=== PATIENT | male | born 1980 | race Caucasian/White ===

== ENCOUNTER 2017-11-18 06:09 | Emergency (ER) | payer OTHER, SELFPAY ==
[2017-11-18] MEDS ORDERED: DEXAMETHASONE 10 MG/ML VIAL ONE (06:50)
[2017-11-18] MEDS ORDERED: KETOROLAC 30 MG/ML INJ ONE (06:50)
--- NOTE | 2017-11-18 07:06 | ER ---
Nurse's Notes [facility] Name: Grzegorz Love Age: 37 yrs Sex: Male : 1980 Arrival Date: 11/18/2017 Time: 06:10 Bed X-Ray Private MD: Ash Mayer E Diagnosis: Pain in right knee;Effusion, right knee Presentation: 11/18 06:19 Presenting complaint: Patient states: "I was playing with my kids yesterday and I hurt ao my right knee. I wanted to check and make sure is okay.". Transition of care: patient was not received from another setting of care. Onset of symptoms was November 17, 2017 at 17:00. Risk Assessment: Do you want to hurt yourself or someone else? Patient reports no desire to harm self or others. Initial Sepsis Screen: Does the patient meet any 2 criteria? No. Patient's initial sepsis screen is negative. Does the patient have a suspected source of infection? No. Patient's initial sepsis screen is negative. Care prior to arrival: None. 06:19 Method Of Arrival: Ambulatory ao 06:19 Acuity: [place] 4 ao Historical: - Allergies: 06:22 No Known Allergies; ao - Home Meds: 06:22 lisinopril 5 mg Oral tab 1 tab once daily [Active]; ao - PMHx: 06:22 Hypertension; ao - PSHx: 06:22 Knee surgery; ao - Immunization history:: Adult Immunizations up to date. - Social history:: Smoking status: Patient uses tobacco products, smokes one pack cigarettes per day. Patient/guardian denies using alcohol, street drugs. - Ebola Screening: : Patient negative for fever greater than or equal to 101.5 degrees Fahrenheit, and additional compatible Ebola Virus Disease symptoms Patient denies exposure to infectious person Patient denies travel to an Ebola-affected area in the 21 days before illness onset. Screenin:25 Abuse screen: Denies threats or abuse. Denies injuries from another. Nutritional ao screening: No deficits noted. Tuberculosis screening: No symptoms or risk factors identified. Fall Risk None identified. Assessment: 06:23 General: Appears in no apparent distress. uncomfortable, Behavior is calm, cooperative, ao appropriate for age. Pain: Complains of pain in right leg Pain currently is 5 out of 10 on a pain scale. Neuro: Level of Consciousness is awake, alert, obeys commands, Oriented to person, place, time, situation, Appropriate for age Moves all extremities. Speech is normal, Facial symmetry appears normal. Cardiovascular: Capillary refill < 3 seconds Patient's skin is warm and dry. Respiratory: Airway is patent Respiratory effort is even, unlabored, Respiratory pattern is regular, symmetrical. GI: Abdomen is round obese. : No signs and/or symptoms were reported regarding the genitourinary system. EENT: No signs and/or symptoms were reported regarding the EENT system. Derm: Skin is intact, Skin is pink, warm \\T\\ dry. Skin temperature is warm. Musculoskeletal: Reports pain in right knee. Injury Description: hurt knee when playing with kids. 07:15 Reassessment: Patient appears in no apparent distress at this time. No changes from tw2 previously documented assessment. Patient and/or family updated on plan of care and expected duration. Pain level reassessed. Patient is alert, oriented x 3, equal unlabored respirations, skin warm/dry/pink. Vital Signs: 06:21 BP 136 / 88; Pulse 88; Resp 16; Temp 97.7(TE); Pulse Ox 99% on R/A; Weight 136.08 kg; ao Height 6 ft. 0 in. (182.88 cm) (R); Pain 5/10; 06:21 Body Mass Index 40.69 (136.08 kg, 182.88 cm) ao ED Course: 06:10 Patient arrived in ED. es 06:13 Ash Mayer MD is Private Physician. es 06:19 Omar Silva RN is Primary Nurse. ao 06:21 Triage completed. ao 06:23 Arm band placed on right wrist. Patient placed in an exam room, on a stretcher, on ao pulse oximetry, Patient notified of wait time. 06:26 Patient has correct armband on for positive identification. Pulse ox on. NIBP on. ao 06:28 Chucho Sanders MD is Attending Physician. ps1 06:40 Radiology exam delayed due to patient is not appropriately dressed for the exam at this kw time. 07:02 Report given to MARYAN Hilton. ao 07:04 Ash Mayer MD is Referral Physician. ps1 07:08 Primary Nurse role handed off by Omar Silva RN ag 07:08 X-ray completed. kw 07:10 XRAY Knee RIGHT 3 view In Process Unspecified. EDMS 07:15 Lida Snowden, RN is Primary Nurse. tw2 07:15 No provider procedures requiring assistance completed. Patient did not have IV access tw2 during this emergency room visit. Administered Medications: 06:53 Drug: TORadol 30 mg Route: IM; Site: right deltoid; ao 07:24 Follow up: Response: No adverse reaction tw2 06:54 Drug: Decadron - Dexamethasone 10 mg Route: IVP; Site: Other; ao 07:24 Follow up: Response: No adverse reaction tw2 Outcome: 07:05 Discharge ordered by . ps1 07:24 Discharged to home ambulatory. tw2 07:24 Condition: stable 07:24 Discharge instructions given to patient, Instructed on discharge instructions, follow up and referral plans. no drinking with medication, no driving heavy equipment, medication usage, Demonstrated understanding of instructions, follow-up care, medications, Prescriptions given X 2. 07:24 Patient left the ED. tw2 Signatures: Dispatcher [employer] EDNJ Marina Mack Kimberlee kw Gallardo, Ana ag Ortiz, Alex RN RN Lida Heath, RN RN tw2 Chucho Sanders MD MD ps1 Corrections: (The following items were deleted from the chart) 07:08 07:07 Radiology exam delayed due to patient is not appropriately dressed for the exam kw at this time. kw
--- NOTE | 2017-11-18 07:06 | EDPHYS ---
Physician Documentation [facility] Name: Grzegorz Love Age: 37 yrs Sex: Male : 1980 Arrival Date: 11/18/2017 Time: 06:10 Bed X-Ray Private MD: Ash Mayer E ED Physician Chucho Sanders HPI: 11/18 06:38 This 37 yrs old Male presents to ER via Ambulatory with complaints of LEG ps1 INJURY. 06:38 The patient presents with pain, that is acute. The complaints affect the posterior ps1 aspect of right knee and right knee. playing with kids yesterday with [employer] gun. Does not remember specifically injuring the knee. Has a history of ACL tear and repair several years ago. Pain rated as moderate, worse with movement and WB. Has small amount of swelling/effusion. No fever. . Historical: - Allergies: 06:22 No Known Allergies; ao - Home Meds: 06:22 lisinopril 5 mg Oral tab 1 tab once daily [Active]; ao - PMHx: 06:22 Hypertension; ao - PSHx: 06:22 Knee surgery; ao - Immunization history:: Adult Immunizations up to date. - Social history:: Smoking status: Patient uses tobacco products, smokes one pack cigarettes per day. Patient/guardian denies using alcohol, street drugs. - Ebola Screening: : Patient negative for fever greater than or equal to 101.5 degrees Fahrenheit, and additional compatible Ebola Virus Disease symptoms Patient denies exposure to infectious person Patient denies travel to an Ebola-affected area in the 21 days before illness onset. ROS: 06:38 Constitutional: Negative for fever, chills, and weight loss, Eyes: Negative for injury, ps1 pain, redness, and discharge, ENT: Negative for injury, pain, and discharge, Cardiovascular: Negative for chest pain, palpitations, and edema, Respiratory: Negative for shortness of breath, cough, wheezing, and pleuritic chest pain, Abdomen/GI: Negative for abdominal pain, nausea, vomiting, diarrhea, and constipation, Back: Negative for injury and pain, Skin: Negative for injury, rash, and discoloration. 06:38 MS/extremity: Positive for pain, tenderness. Exam: 06:38 Constitutional: This is a well developed, well nourished patient who is awake, alert, ps1 and in no acute distress. Head/Face: Normocephalic, atraumatic. Eyes: Pupils equal round and reactive to light, extra-ocular motions intact. Lids and lashes normal. Conjunctiva and sclera are non-icteric and not injected. Chest/axilla: Normal chest wall appearance and motion. Nontender with no deformity. No lesions are appreciated. Cardiovascular: Regular rate and rhythm. No gallops, murmurs, or rubs. Normal PMI, no JVD. No pulse deficits. Respiratory: Lungs have equal breath sounds bilaterally, clear to auscultation and percussion. No rales, rhonchi or wheezes noted. No increased work of breathing, no retractions or nasal flaring. Abdomen/GI: Soft, non-tender, with normal bowel sounds. No distension or tympany. No guarding or rebound. No evidence of tenderness throughout. 06:38 Musculoskeletal/extremity: Extremities: grossly normal except: noted in the right knee: decreased ROM, pain, trace effusion. Vital Signs: 06:21 BP 136 / 88; Pulse 88; Resp 16; Temp 97.7(TE); Pulse Ox 99% on R/A; Weight 136.08 kg; ao Height 6 ft. 0 in. (182.88 cm) (R); Pain 5/10; 06:21 Body Mass Index 40.69 (136.08 kg, 182.88 cm) ao MDM: 06:38 Data reviewed: vital signs, nurses notes. ps1 07:05 Patient medically screened. ps1 07/02 06:30 Order name: XRAY Knee RIGHT 3 view ao Administered Medications: 06:53 Drug: TORadol 30 mg Route: IM; Site: right deltoid; ao 07:24 Follow up: Response: No adverse reaction tw2 06:54 Drug: Decadron - Dexamethasone 10 mg Route: IVP; Site: Other; ao 07:24 Follow up: Response: No adverse reaction tw2 Disposition: 11/18/17 07:05 Discharged to Home. Impression: Pain in right knee, Effusion, right knee. - Condition is Stable. - Discharge Instructions: Knee Effusion, Musculoskeletal Pain. - Prescriptions for Anaprox DS 550 mg Oral Tablet - take 1 tablet by ORAL route every 12 hours As needed; 20 tablet. Medrol (Arturo) 4 mg Oral Tablets, Dose Pack - take 1 tablet by ORAL route as directed - follow package instructions; 1 packet. - Work release form, Medication Reconciliation Form, Thank You Letter, Antibiotic Education, Prescription Opioid Use form. - Follow up: Ash Mayer MD; When: 10 - 14 days; Reason: Further diagnostic work-up, Recheck today's complaints, Continuance of care. Follow up: Emergency Department; When: As needed; Reason: Fever > 102 F, Worsening of condition. - Problem is new. - Symptoms are unchanged. Signatures: Dispatcher [employer] EDME Omar Silva, RN RN ao Lida Snowden RN RN tw2 Chucho Sanders MD MD ps1 Corrections: (The following items were deleted from the chart) 07:24 07:05 11/18/2017 07:05 Discharged to Home. Impression: Pain in right knee; Effusion, tw2 right knee. Condition is Stable. Forms are Work release form, Medication Reconciliation Form, Thank You Letter, Antibiotic Education, Prescription Opioid Use. Follow up: Ash Mayer; When: 10 - 14 days; Reason: Further diagnostic work-up, Recheck today's complaints, Continuance of care. Follow up: Emergency Department; When: As needed; Reason: Fever > 102 F, Worsening of condition. Problem is new. Symptoms are unchanged. ps1
--- NOTE | 2017-11-18 07:22 | RAD REPORT ---
EXAM DESCRIPTION: RAD - Knee Right 3 View - 11/18/2017 7:11 am CLINICAL HISTORY: Knee pain COMPARISON: November 2011 FINDINGS: No fracture, dislocation or periosteal reaction.Trace amount of fluid seen in the joint sp jona. No joint space narrowing. Old surgical defects are present from prior ACL repair. This repair pr e dates the 2012 comparison. No foreign body or periarticular abnormality. IMPRESSION: Trace amount of pleural fluid and old surgical changes are noted. No acute findings seen and no substantial change from the 2012 comparison. Clinical concerns for internal derangement or occult bony injury could be further assessed with MR ita reyna.
[2017-11-18 07:28] VITALS: BP 136/88; TEMP 97.7; O2SAT 99
== END 2017-11-18 07:24 | disposition home or self-care (01) ==
LOC: ER 06:09
DX: M25.461 Effusion, right knee (principal); I10 Essential (primary) hypertension; F17.210 Nicotine dependence, cigarettes, uncomplicated
CPT/HCPCS: 96372; 96374; 99284; J1100